=== PATIENT | male | born 1955 | race African-American/Black ===

== ENCOUNTER 2019-03-24 06:48 | Inpatient (IN) | payer MEDICAID, OTHER ==
[~2019-03-24] VITALS: Ht 177.8 cm; Wt 103.4 kg
[2019-03-24 06:55] VITALS: BP_SYST 142
--- NOTE | 2019-03-24 07:00 | NUR ---
Placed in room 4 . Placed on media monitor, blood pressure machine and pulse oximeter. To gown for exam. Side rails up. Report given to DAYSHIFT NURSES.
--- NOTE | 2019-03-24 07:15 | NUR ---
Patient BIB BLS C/O weakness. Patient A&Ox3, afebrile, skin pink and cool, denies N/V/D, pain 09/14. Patient linda he has recent hospital discharge form [place], he has chronic back pain and feels weak.
--- NOTE | 2019-03-24 07:40 | NUR ---
DAVID Cheatham at bedside examining patient.
[2019-03-24] MEDS ORDERED: NACL 0.9% 1,000 ML IV ONE (08:00)
--- NOTE | 2019-03-24 08:55 | NUR ---
# 20 gauge angiocath placed to left AC. Use of asceptic technique. Opsite placed over site. Blood return noted. Blood for lab drawn from site. Flushed with 10 cc of normal saline. No evidence of infiltration noted. Patient tolerated well.
--- NOTE | 2019-03-24 09:05 | NUR ---
radiology at bedside for portable x-tray
[2019-03-24 09:46] LABS: ANION GAP 13 (5-15); CALCIUM 8.4 mg/dL (8.4-11.0); CHLORIDE 103 mmol/L (98-107); CREATININE 0.88 mg/dL (0.55-1.30); GLUCOSE 185 mg/dL (70-99); POTASSIUM 4.1 mmol/L (3.5-5.1); SODIUM SERUM 134 mmol/L (136-145); UREA NITROGEN, BLOOD 14 mg/dL (8-21)
[2019-03-24 09:48] LABS: GFR AFRICAN AMERICAN 111 mL/min (>90)
[2019-03-24 09:52] LABS: ALANINE AMINOTRANSFERASE 70 U/L (12-78); ALBUMIN 2.4 g/dL (3.4-4.8); ASPARTATE AMINOTRANSFERASE 119 U/L (10-37); LIPASE 417 U/L (73-393); TOTAL BILIRUBIN 1.3 mg/dL (0.0-1.0)
[2019-03-24 10:25] LABS: BILIRUBIN,URINE NEGATIVE (NEGATIVE); BLOOD, URINE NEGATIVE (NEGATIVE); CLARITY/URINE CLEAR (CLEAR); COLOR,URINE YELLOW (YELLOW); GLUCOSE,URINE NEGATIVE (NEGATIVE); KETONES,URINE NEGATIVE (NEGATIVE); LEUKOCYTE ESTERASE ,URINE NEGATIVE (NEGATIVE); NITRITE, URINE NEGATIVE (NEGATIVE); PROTEIN URINE NEGATIVE (NEGATIVE)
[2019-03-24 10:30] LABS: BASOPHILS % (AUTO) 0.7 % (0.0-2.0); EOSINOPHILS # (AUTO) 0.1 K/uL (0.0-0.4); EOSINOPHILS % (AUTO) 1.5 % (0.0-4.0); HEMOGLOBIN 11.5 g/dL (14.0-18.0); LYMPHOCYTES # (AUTO) 1.9 K/uL (1.0-5.5); LYMPHOCYTES % (AUTO) 32.5 % (20.5-51.5); MEAN CORPUSCULAR HEMOGLOBIN 33 pg (27-31); MEAN CORPUSCULAR HGB CONC 35 % (32-36); MEAN CORPUSCULAR VOLUME 94 fL (79.0-98.0); MONOCYTES # (AUTO) 0.7 K/uL (0.0-1.0); MONOCYTES % (AUTO) 12.7 % (1.7-9.3); NEUTROPHILS # (AUTO) 3.1 K/uL (1.8-7.7); NEUTROPHILS % (AUTO) 52.6 % (40.0-70.0); RED BLOOD CELL COUNT(AUTO) 3.52 MIL/uL (4.2-6.2); RED CELL DISTRIBUTION WIDTH 14.5 % (9.0-15.0); WHITE BLOOD COUNT (AUTO) 5.9 K/uL (4.8-10.8)
[2019-03-24] MEDS ORDERED: NACL 0.9% 2,000 ML IV ONE (10:30)
[2019-03-24 10:38] LABS: ALCOHOL, BLOOD < 3 mg/dL (<10)
[2019-03-24 10:39] LABS: CANNABINOID, URINE POSITIVE (NEG <=50); OPIATE, URINE POSITIVE (NEG <=100)
[2019-03-24 10:40] LABS: BARBITURATE, URINE NEGATIVE (NEG <=200); BENZODIAZEPINE, URINE POSITIVE (NEG <=150); COCAINE, URINE NEGATIVE (NEG <=150); METHAMPHETAMINES SCREEN,URINE NEGATIVE (NEG <=500); PHENCYCLIDINE SCREEN,URINE NEGATIVE (NEG <=25); UR TRICYCLIC ANTIDEPRESSANTS NEGATIVE (NEG <=300); URINE AMPHETAMINE NEGATIVE (NEG <=500); URINE METHADONE NEGATIVE (NEG <=200); URINE OXYCODONE SCREEN NEGATIVE (NEG <=100); URINE PROPOXYPHENE SCREEN NEGATIVE (NEG <=300)
[2019-03-24] MEDS ORDERED: LACTULOSE 20 GM/30 ML UDC PO ONE (10:45)
[2019-03-24 10:48] LABS: PLATELET COUNT (AUTO) 87 K/uL (130-430)
--- NOTE | 2019-03-24 11:15 | NUR ---
DAVID Garcia at bedside examining patient.
[2019-03-24] MEDS ORDERED: MORPHINE 4 MG/ML INJ. SYRINGE IVP ONE (11:30)
[2019-03-24] MEDS ORDERED: KCL 20 mEq in D5/0.45NS 1000mL 1,000 ML IV ONE (11:30)
--- NOTE | 2019-03-24 11:45 | NUR ---
Lab at Bedside
--- NOTE | 2019-03-24 12:10 | NUR ---
Patient will be admitted to care of DR. HAAS. Admitted to TELE unit. Will go to room . Belongings list completed. Complete and up to date summary report printed. SBAR report to be given at bedside with opportunity for questions. Transfer to TELE via ACLS protocol. Licensed nurse present. IV present no signs or symptoms of infiltration.
--- NOTE | 2019-03-24 12:28 | NUR ---
ADMISSION NOTE Received patient from ER via christian, received report from PEBBLES GERMAN. Patient admitted with diagnosis of ENCEPALOPHATY. Patient oriented to hospital routine, call light, toileting and safety-patient verbalized understanding.
[2019-03-24 13:25] VITALS: BP_SYST 142
[2019-03-24] MEDS ORDERED: KETOROLAC TROMETHAMINE 15 MG VIAL IM PRN (14:45)
--- NOTE | 2019-03-24 15:46 | NUR ---
ROUNDS Pt resting quietly in bed with eyes closed with no s/s resp distress, no s/s pain or discomfort. Pt seen by Dr. Vazquez earlier-new orders noted-will give due medications. No changes, call light within reach.
[2019-03-24] MEDS: KCL 20 mEq in 0.45% NS 1000 mL 1,000 ML IV SCH (15:54)
--- NOTE | 2019-03-24 16:57 | NUR ---
PAYROLL AND BENEFITS SPECIALIST Pt's greaser operator Mr. Paige called and stated that the pt does not live with his sister and that he may need assistance with finding a place to stay if discharged over the weekend. Mr. Paige's phone number: [phone]. Pt has a GPS ankle monitor on his left ankle. Pt does not have a perfumer for the ankle bracelet. Message left at Seasonal Clerk ext [phone] to follow-up.
[2019-03-24 17:06] VITALS: BP_SYST 98
[2019-03-24] MEDS: INSULIN REGULAR, HUMAN 100 UNITS/ML, 10 ML VIAL (humuLIN R) SUBCUT PRN ×2 (17:46→21:32)
--- NOTE | 2019-03-24 18:13 | NUR ---
P.T. NOTES P.T. ANDRES COMPLETED; PATIENT MAY AMBULATE W/ FWW W/ NURSE Scarlett LUGO ANKLE BRACELET MONITORING DEVICE INTACT. Addendum: 03/24/19 at 1815 by Destiny Joy PT Amended: Links added.
--- NOTE | 2019-03-24 18:14 | NUR ---
CLOSING NOTE/RAKING MACHINE OPERATOR/BM Pt's Pharmacovigilance Scientist Mr. Kim came and brought the ankle GPS bracelet spa experience coordinator for pt-pt currently charging his ankle bracelet. Mr. Kim asked to be notified of any D/C plans. Pt sitting up in bed eating his dinner. No s/s resp distress, no c/o pain or discomfort. IVF infusing well to LAC at ordered rate with no s/s infiltration to site. Noted that pt ambulated to the bathroom with FWW and Physical therapy and had a BM. Skin and safety precautions remain in place. Call light within reach.
--- NOTE | 2019-03-24 19:25 | NUR ---
initial notes: pt is on bed. alert, awake,oriented x 2, no pain. no sob. not distress. stable vital sign, ivf infusing to left ac gauge 22- intact. pt is complaining pain to the iv site. no skin breakdown at the back. scabs seen to right forehead, explain to pt plan of care, pt agree. needs attended, call light in reach, side rails up. low bed position. will monitor.
[2019-03-24 20:58] VITALS: BP_SYST 128
[2019-03-24] MEDS ORDERED: ENOXAPARIN SODIUM 40 MG/0.4 ML SYRINGE SUBCUT SCH (21:00)
--- NOTE | 2019-03-24 21:00 | NUR ---
start new iv site left fore arm using agioccath gauge 20, good blood return, done aseptically.pt tolerate well.
[2019-03-24] MEDS: LACTULOSE 20 GM/30 ML UDC PO SCH (21:17)
[2019-03-24] MEDS: PANTOPRAZOLE SODIUM 40 MG/VIAL (PROTONIX) IVP SCH (21:17)
--- NOTE | 2019-03-24 22:00 | NUR ---
pt is awake, alert, eating snacks, no pain. no sob. ivf infusing well. needs attended. will monitor.
[2019-03-24 23:59] VITALS: BP_SYST 111
--- NOTE | 2019-03-25 | NUR ---
sleeping, no pain. no sob and not distress. ivf infusing well. call light in reach. safety on. will monitor.
[2019-03-25] MEDS: KCL 20 mEq in 0.45% NS 1000 mL 1,000 ML IV SCH ×3 (02:01→22:26)
--- NOTE | 2019-03-25 02:12 | NUR ---
sleeping, no acute distress. no sign of pain, stable, call light in reach. safety on. will monitor.
--- NOTE | 2019-03-25 04:10 | NUR ---
sleeping, no pain. no sob and not distress. ivf infusing well. call light in reach. safety on. will monitor
--- NOTE | 2019-03-25 06:20 | NUR ---
pt is resting, wakes up for blood sugar check-98, no coverage. ivf infusing well. needs attended. call light in reach. will monitor.
--- NOTE | 2019-03-25 07:15 | NUR ---
closing: sleeping, wakes up on report. no pain. no sob and not distress. ivf infusing well. call light in reach. safety on.bedside report given to am rn.
--- NOTE | 2019-03-25 07:40 | NUR ---
INITIAL NOTE PT AWAKE, DENIES ANY DISCOMFORT AT THIS TIME. PT ON ROOM AIR, TOLERATING WELL. IVF INFUSING WELL, CALL LIGHT WITHIN REACH, BED IN LOW AND LOCKED POSITION WITH BED ALARM ON.
[2019-03-25 07:51] LABS: BASOPHILS % (AUTO) 1.1 % (0.0-2.0); EOSINOPHILS # (AUTO) 0.2 K/uL (0.0-0.4); EOSINOPHILS % (AUTO) 4.5 % (0.0-4.0); HEMATOCRIT 30.6 % (36-54); HEMOGLOBIN 10.8 g/dL (14.0-18.0); LYMPHOCYTES # (AUTO) 2.4 K/uL (1.0-5.5); LYMPHOCYTES % (AUTO) 52.8 % (20.5-51.5); MEAN CORPUSCULAR HEMOGLOBIN 34 pg (27-31); MEAN CORPUSCULAR HGB CONC 35 % (32-36); MEAN CORPUSCULAR VOLUME 95 fL (79.0-98.0); MONOCYTES # (AUTO) 0.5 K/uL (0.0-1.0); MONOCYTES % (AUTO) 10.2 % (1.7-9.3); NEUTROPHILS # (AUTO) 1.4 K/uL (1.8-7.7); NEUTROPHILS % (AUTO) 31.4 % (40.0-70.0); PLATELET COUNT (AUTO) 72 K/uL (130-430); RED BLOOD CELL COUNT(AUTO) 3.22 MIL/uL (4.2-6.2); RED CELL DISTRIBUTION WIDTH 14.8 % (9.0-15.0); WHITE BLOOD COUNT (AUTO) 4.6 K/uL (4.8-10.8)
[2019-03-25 08:00] VITALS: BP_SYST 131
[2019-03-25] MEDS: LACTULOSE 20 GM/30 ML UDC PO SCH ×2 (08:24→21:05)
[2019-03-25] MEDS: PANTOPRAZOLE SODIUM 40 MG/VIAL (PROTONIX) IVP SCH ×2 (08:24→21:05)
[2019-03-25 08:35] LABS: CALCIUM 7.5 mg/dL (8.4-11.0); CREATININE 0.89 mg/dL (0.55-1.30)
--- NOTE | 2019-03-25 08:50 | NUR ---
LEFT TO CT PT TAKEN VIA GURNEY, DENIES ANY PAIN DISCOMFORT.
--- NOTE | 2019-03-25 09:20 | NUR ---
BACK FROM CT PT REFUSING TO BE RECONNECTED BACK TO IVF. EDUCATED PT ON USE AND PURPOSE OF IVF, PT VERBALIZED UNDERSTANDING. PT REFUSING TO BE CONNECTED AT THIS TIME. WILL REATTEMPT LATER.
--- NOTE | 2019-03-25 11:45 | NUR ---
BSG 135 NO INSULIN COVERAGE NEEDED. PT RESTING IN BED. COOPERATIVE AND ALLOWED FOR VITAL SIGNS TO BE TAKEN. PT REFUSED TO BE RECONNECTED TO IVF. WILL REATTEMPT AGAIN LATER.
[2019-03-25 12:33] VITALS: BP_SYST 119
--- NOTE | 2019-03-25 14:45 | NUR ---
MAXI PARSONS/DR. ROSA TOWNSEND AT BEDSIDE EXAMINING PT. PT AWAKE, COOPERATIVE. INQUIRING ABOUT PT HOME MEDS. PT CONFUSED AND UNSURE WHERE HIS MEDICATIONS ARE. PT STATES HE IS ON [place] AND HAD RECEIVED A 30 DAY PRESCRIPTION OF MEDICATIONS UPON RELEASE FROM [place]. WILL REATTEMPT TO CONTACT MINERAL ORE PROCESSING LABOURER AND GET MORE INFORMATION ON HOME MEDICATIONS FOR PT.
--- NOTE | 2019-03-25 15:30 | NUR ---
COVERING AND LINING SUPERVISOR CALLED, NO ANSWER WILL REATTEMPT LATER
[2019-03-25] MEDS ORDERED: D5W 1,000 ML IV PRN (16:00)
[2019-03-25] MEDS ORDERED: DEXTROSE 50%-WATER 50 ML DISP.SYRIN IVP PRN (16:00)
[2019-03-25] MEDS ORDERED: GLUCOSE 15 GM GEL (in 37.5 GM TUBE) PO PRN (16:00)
[2019-03-25 16:38] VITALS: BP_SYST 127
--- NOTE | 2019-03-25 17:15 | NUR ---
initial notes: pt is on bed. alert, awake,oriented x 2, no pain. no sob. not distress. stable vital sign, ivf infusing to left forearm gauge 20, pt complaining pain and swelling to the iv site. turn of ivf and will start new iv site. no skin breakdown at the back. explain to pt plan of care, pt agree. needs attended, call light in reach, side rails up. low bed position. will monitor. Addendum: 03/26/19 at 0014 by Dmitriy Dunn RN initial notes for 1914 time.
--- NOTE | 2019-03-25 17:30 | NUR ---
BSG 118 NO INSULIN COVERAGE NEEDED. PT DENIES ANY PAIN OR DISCOMFORT. DIMMED LIGHTS, ASSISTED WITH REPOSITIONING.
--- NOTE | 2019-03-25 18:28 | NUR ---
CLOSING NOTE PT SITTING AT EDGE OF BED EATING DINNER. PT DENIES ANY PAIN OR DISCOMFORT AT THIS TIME. IVF INFUSING WELL, CALL LIGHT WITHIN REACH, BED IN LOW AND LOCKED POSITION WITH BED ALARM ON. WILL CONTINUE TO MONITOR UNTIL PT CARE IS ENDORSED TO SERVICE PARTS COORDINATOR RN.
[2019-03-25 19:21] VITALS: BP_SYST 144
--- NOTE | 2019-03-25 21:00 | NUR ---
start new iv angiocath to right forearm gauge 20- good blood return, done aseptically.
--- NOTE | 2019-03-25 22:00 | NUR ---
linen and gown change. needs attended. will monitor.
[2019-03-26 00:08] VITALS: BP_SYST 126
--- NOTE | 2019-03-26 00:16 | NUR ---
pt is still awake, no pain. stable vital sign. ivf infusing well. no sign of infiltration. needs attended. safety on. call light in reach. will monitor.
--- NOTE | 2019-03-26 02:00 | NUR ---
sleeping, no pain. no sob and not distress. ivf infusing well- no sign of infiltration. call light in reach. safety on. will monitor
--- NOTE | 2019-03-26 04:00 | NUR ---
sleeping, no paon. no acute distress. no sob. stable. safety on. will monitor.
--- NOTE | 2019-03-26 06:20 | NUR ---
PT WAKES UP. NO PAIN. BLOOD SUGAR 87, STABLE. NEEDS ATTENDED. CALL LIGHT IN REACH. SAFETY ON. WILL MONITOR.
--- NOTE | 2019-03-26 07:25 | NUR ---
opening note patient is resting in bed, alert to name and , educated medical transcription light system and plan of care, patient kept repeating sentences and did not give me a straight verbal understanding, no signs of distress at this time, IV site dressing intact with IVF running and patient tolerating well, no other needs addressed at this time, bed in lowest position, bed alarm on, call light within reach, two side rails up, fall/safety precautions in place.
--- NOTE | 2019-03-26 07:26 | NUR ---
closing: pt is awake, alert. no pain. no sob and not distress. ivf infusing well. call light in reach. safety on.bedside report given to am rn.
[2019-03-26 08:00] VITALS: BP_SYST 141
[2019-03-26] MEDS: PANTOPRAZOLE SODIUM 40 MG/VIAL (PROTONIX) IVP SCH ×2 (08:03→22:20)
[2019-03-26] MEDS: LACTULOSE 20 GM/30 ML UDC PO SCH ×2 (08:03→22:20)
[2019-03-26 08:04] LABS: BASOPHILS % (AUTO) 0.7 % (0.0-2.0); EOSINOPHILS # (AUTO) 0.2 K/uL (0.0-0.4); EOSINOPHILS % (AUTO) 3.9 % (0.0-4.0); HEMATOCRIT 30.5 % (36-54); HEMOGLOBIN 10.6 g/dL (14.0-18.0); LYMPHOCYTES # (AUTO) 2.5 K/uL (1.0-5.5); LYMPHOCYTES % (AUTO) 54.3 % (20.5-51.5); MEAN CORPUSCULAR HEMOGLOBIN 33 pg (27-31); MEAN CORPUSCULAR HGB CONC 35 % (32-36); MEAN CORPUSCULAR VOLUME 94 fL (79.0-98.0); MONOCYTES # (AUTO) 0.4 K/uL (0.0-1.0); MONOCYTES % (AUTO) 8.5 % (1.7-9.3); NEUTROPHILS # (AUTO) 1.5 K/uL (1.8-7.7); NEUTROPHILS % (AUTO) 32.6 % (40.0-70.0); PLATELET COUNT (AUTO) 78 K/uL (130-430); RED BLOOD CELL COUNT(AUTO) 3.23 MIL/uL (4.2-6.2); RED CELL DISTRIBUTION WIDTH 14.8 % (9.0-15.0); WHITE BLOOD COUNT (AUTO) 4.5 K/uL (4.8-10.8)
[2019-03-26] MEDS: KCL 20 mEq in 0.45% NS 1000 mL 1,000 ML IV SCH ×2 (08:04→18:04)
[2019-03-26 08:38] LABS: ALBUMIN 1.9 g/dL (3.4-4.8); CALCIUM 7.5 mg/dL (8.4-11.0); CREATININE 0.77 mg/dL (0.55-1.30); POTASSIUM 3.8 mmol/L (3.5-5.1); TOTAL BILIRUBIN 1.2 mg/dL (0.0-1.0)
--- NOTE | 2019-03-26 10:20 | NUR ---
rounds patient is resting in bed, watching tv, no signs of distress at this time, no needs addressed at this time, IVF running and patient tolerating well, fall/safety precautions in place.
[2019-03-26 12:31] VITALS: BP_SYST 144
--- NOTE | 2019-03-26 14:00 | NUR ---
assisted patient to the bathroom patient walked steady to the bathroom and back to bed, no signs of distress at this time, no other needs addressed at this time, fall/safety precautions in place.
--- NOTE | 2019-03-26 16:20 | NUR ---
rounds patient is resting in bed, does not want to watching tv, no signs of distress at this time, no needs addressed at this time, IVF running and patient tolerating well, fall/safety precautions in place.
[2019-03-26 17:26] VITALS: BP_SYST 157
--- NOTE | 2019-03-26 18:37 | NUR ---
closing note patient is resting in bed, no signs of distress at this time, IV site dressing intact with IVF running and patient tolerating well, no other needs addressed at this time, bed in lowest position, bed alarm on, call light within reach, two side rails up, fall/safety precautions in place, patient can ambulate to the bathroom, will endorse report to noc shift nurse to continue with care, social worker psychiatric consult was ordered because patient may be possibly homeless.
--- NOTE | 2019-03-26 19:10 | NUR ---
OPENING NOTES Receive report from morning shift nurse. Patient AOx2, confusion is noted, patient to talks to himself. Patient calm and cooperative and follow simple commands. No signs of respiratory distress and discomfort noted. HOB raised. IVF infusing well, patency noted. SCD's operating well. Call light within reach. Bed locked and in lowest position. Safety precautions in place. Will continue to monitor patient
[2019-03-26 20:00] VITALS: BP_SYST 147
--- NOTE | 2019-03-26 22:20 | NUR ---
MED PASS Due medication given at this time. Patient tolerated well. No signs of respiratory distress noted. Denies pain and discomfort at this time. Safety precautions in place. Will continue to monitor.
[2019-03-26 22:43] VITALS: BP_SYST 150
--- NOTE | 2019-03-26 23:30 | NUR ---
RN ROUNDS Patient awake at this time, quietly sitting in bed. No signs of respiratory distress noted. Denies pain and discomfort at this time. Breathing even and unlabored. Safety precautions in place. Call light within reach. Will continue to monitor
--- NOTE | 2019-03-27 02:42 | NUR ---
RN ROUNDS Patient asleep at this time. No signs of respiratory distress and discomfort noted. Breathing even and unlabored. Safety precautions in place. Call light within reach. Will continue to monitor
[2019-03-27] MEDS: KCL 20 mEq in 0.45% NS 1000 mL 1,000 ML IV SCH (03:45)
--- NOTE | 2019-03-27 03:45 | NUR ---
NEW IV HUNG New IV hung at this time, patient awake. No signs of respiratory distress noted. Denies pain and discomfort. Safety precautions in place. Will continue to monitor patient.
[2019-03-27] MEDS: INSULIN REGULAR, HUMAN 100 UNITS/ML, 10 ML VIAL (humuLIN R) SUBCUT PRN (06:39)
--- NOTE | 2019-03-27 06:46 | NUR ---
Nutrition Update Jay Scale 18 noted. Pt admitted for Encephalopathy Diet: [facility] BMI: 32.7 kg/m2 RD to follow per nutrition care standards.
--- NOTE | 2019-03-27 07:00 | NUR ---
CLOSING NOTES Patient AOx2, confusion is noted, patient to talks to himself. Patient calm and cooperative and follow simple commands. No signs of respiratory distress noted. Denies pain and discomfort at this time. HOB raised. IVF infusing well, patency noted. SCD's operating well. Call light within reach. Bed locked and in lowest position. Safety precautions in place. All needs met throughout the shift. Endorsed to MAXI Nugent for continuity of care.
--- NOTE | 2019-03-27 08:00 | NUR ---
received awake and in no c/o discomfort.vss resp even and unlabored and sats 97% on ra.up amb to br.iv infusing at 100 hr. will continue to monitor.call rosales in place
[2019-03-27] MEDS: LACTULOSE 20 GM/30 ML UDC PO SCH ×2 (08:29→20:48)
[2019-03-27] MEDS: PANTOPRAZOLE SODIUM 40 MG/VIAL (PROTONIX) IVP SCH ×2 (08:29→20:49)
[2019-03-27 12:50] VITALS: BP_SYST 147
--- NOTE | 2019-03-27 16:35 | NUR ---
Paper Goods Machine Set Up Operator; met with pt. to conduct a DCPA. PAVER OPERATOR met with pt. He was very slow to respond to questions. He was an active participant. He stated he was just released from the [facility] , served 33 years for 1st degree murder. Pt. stated he did not know if he had medical. He stated he has a twin sister Erlin Smith. He stated he is homeless, but that she was had to take him in. He was staying temporarily at the [facility] in [place]. Pt. stated he will need clothing and help with transportation. PAVER OPERATOR spoke to Parminder from [employer]. He is looking into this case and has already spoken to pt. PAVER OPERATOR called and left a message for parole office Mr. Melo, to notify him pt. will be discharged. Lorie called PAVER OPERATOR asking for a big favor. He stated Pt. is not mentally capable fo caring for self and he no longer has any motel days at the [facility] in [place]. He was stating pt. has seizures and will fall . When this happens, pt cannot get back up. weapons officer naval activity can pick up driver pt. tomorrow between 9-10 to take him to a home in [place], but this cannot happen due to the holiday. PAVER OPERATOR got approval from supervisor liquid yeast, Pt will be kept until tomorrow. This info was communicated to Ruddy Nugent. and to pt. as well. Pt. stated he will not go to [place] as [place]. The [place] will kill him. PAVER OPERATOR stated his parol officer knows this and is taking him to [place]. PAVER OPERATOR called Ruddy Nugent to notify her as per parole office. pt. suffers from seizures. Rn will look in file to see if this is noted in pts. medical files. PAVER OPERATOR will remain available as needed.
[2019-03-27 16:41] VITALS: BP_SYST 141
--- NOTE | 2019-03-27 18:18 | NUR ---
PT WAS MOVED TO ROOM 100B AND NO C/O DISCOMFORT.VSS.BS NO INSULIN NEEDED.RENAL NURSE TO FOLLOW UP WITH TOMORROW BEFORE CAN BE D/C.PT AWARE OF THIS.
--- NOTE | 2019-03-27 18:52 | NUR ---
REPORT TO BE GIVEN TO PROPERTY MASTER RN
--- NOTE | 2019-03-27 19:36 | NUR ---
Pt is fully awake, alert and oriented x4. Pt is resting quietly in bed. No c/o pain or discomfort. Skin is warm and dry to touch. No signs or symptoms of hypoglycemia or hyperglycemia noted. Saline lock is intact in RFA. Fall and safety precautions are in place.
[2019-03-27 20:00] VITALS: BP_SYST 130
--- NOTE | 2019-03-27 20:48 | NUR ---
Accucheck 130 and no Insulin coverage needed. Skin remains warm and dry to touch. Pt ate 2 1/2 turkey sandwiches and drank 2 cups of apple juices for HS snacks.
--- NOTE | 2019-03-27 23:00 | NUR ---
Resting without any distress.
--- NOTE | 2019-03-28 01:00 | NUR ---
Sleeping comfortably in bed.
--- NOTE | 2019-03-28 03:00 | NUR ---
Sleeping without any distress noted.
--- NOTE | 2019-03-28 05:00 | NUR ---
No acute distress noted. Resting quietly in bed.
--- NOTE | 2019-03-28 06:41 | NUR ---
Accucheck 96 and no Insulin coverage needed. Skin remains warm and dry to touch.
--- NOTE | 2019-03-28 07:30 | NUR ---
INITIAL NOTE PT RESTING IN BED, NO ACUTE DISTRESS NOTED, BREATHING EVEN AND UNLABORED. PT ROOM AIR, TOLERATING WELL. IV SALINE LOCKED. CALL LIGHT WITHIN REACH, BED IN LOW AND LOCKED POSITION WITH BED ALARM ON.
[2019-03-28 08:00] VITALS: BP_SYST 124
[2019-03-28] MEDS: PANTOPRAZOLE SODIUM 40 MG/VIAL (PROTONIX) IVP SCH (08:21)
[2019-03-28] MEDS: LACTULOSE 20 GM/30 ML UDC PO SCH (08:21)
[2019-03-28 09:41] VITALS: BP_SYST 124
--- NOTE | 2019-03-28 09:54 | NUR ---
DISCHARGE NOTE DISCHARGE PACKET AND INSTRUCTIONS WITH PATIENT. ALL BELONGINGS WITH PATIENT. PATIENT DENIES ANY PAIN OR DISCOMFORT. IV CATHETER REMOVED, CATHETER INTACT, NO BLEEDING. ID HOSPITAL BAND REMOVED. ESCORTED PT VIA WHEELCHAIR TO HOSPITAL PARKING LOT. SHANK BREAKERSHE TO TAKE PT HOME.
== END 2019-03-28 09:55 | disposition home or self-care (01) | DRG 279 ==
LOC: SED 06:48 → STU 11:23 → SMU 03-26 15:36
PROVIDERS: ADMIT Family Medicine; ATTEND Family Medicine
DX: K72.00 Acute and subacute hepatic failure without coma (principal); G92 Toxic encephalopathy; D69.6 Thrombocytopenia, unspecified; E11.65 Type 2 diabetes mellitus with hyperglycemia; K74.60 Unspecified cirrhosis of liver; E86.0 Dehydration; D64.9 Anemia, unspecified; F17.210 Nicotine dependence, cigarettes, uncomplicated; I10 Essential (primary) hypertension; T50.905A Adverse effect of unspecified drugs, medicaments and biological substances, initial encounter; Y92.89 Other specified places as the place of occurrence of the external cause; Z88.0 Allergy status to penicillin; Z88.6 Allergy status to analgesic agent
CPT/HCPCS: 36415; 71045; 80048; 80053; 80307; 81003; 82140-TC; 82150-TC; 82962; 83605; 83690-TC; 83735-TC; 84484; 85025; 86710; 87040-TC; 87086; 96360; 96361; 99291; C9113; G0378; G0482; J1815; J1885; J2270; J3480